=== PATIENT | male | born 1980 | race Caucasian/White ===

== ENCOUNTER → 2017-11-16 | Outpatient (CLI) | payer OTHER ==
[~2017-11-16] MED LIST: ASPIRIN81 MG PO; TESSALON PERLE100 MG PO
--- NOTE | 2017-11-20 13:07 | Polysomnography ---
DATE OF STUDY: November 20, 2017 HOME SLEEP STUDY REFERRING PHYSICIAN: Dr. Adán Dale. HISTORY OF PRESENT ILLNESS: The patient reports difficulty initiating and maintaining sleep at night. There is some increased daytime somnolence. INTERPRETATION: The patient slept for 387.5 minutes out of 391 minutes. The sleep efficiency was 97%. Sleep onset latency was 8.5 minutes. The patient had 234 apneic and hypopneic events. The apnea hypopnea index was 53.3 events per hour. FINDINGS: Severe obstructive sleep apnea. RECOMMENDATIONS: 1. Second night sleep study with CPAP titration. 2. Avoid alcohol or sedatives prior to retiring at night. 3. Medically supervised weight loss. Job#: [id number]
== END ==
LOC: SLEEP 19:21
PROVIDERS: ATTEND Internal Medicine Cardiovascular Disease
DX: J18.9 Pneumonia, unspecified organism (principal); I50.20 Unspecified systolic (congestive) heart failure; I10 Essential (primary) hypertension; G47.33 Obstructive sleep apnea (adult) (pediatric)
CPT/HCPCS: 95806